=== PATIENT | male | born 1955 | race Caucasian/White ===

== ENCOUNTER → 2016-09-09 | Outpatient (CLI) | payer OTHER ==
[2016-09-09 17:04] LABS: HEMOGLOBIN 16.1 g/dL (14.1-18.0); LYMPH # 3.1 K/mm3 (0.7-4.5); LYMPH % 34.8 % (10-50)
[2016-09-09 20:42] LABS: BUN 5 mg/dL (7-18); PROSTATE-SPECIFIC AG SCREEEN 0.4 ng/mL (0.0-4.0)
[2016-09-09 21:04] LABS: GFR (ESTIMATED) 99 ML/MIN (>60)
== END ==
LOC: LAB 16:33
PROVIDERS: Nurse Practitioner Family
DX: I10 Essential (primary) hypertension (principal); F32.9 Major depressive disorder, single episode, unspecified; Z00.00 Encounter for general adult medical examination without abnormal findings
CPT/HCPCS: G0103

== ENCOUNTER → 2017-01-26 | Outpatient (CLI) | payer OTHER ==
[2017-01-26 18:41] LABS: AMPHETAMINES/METAMPHETAMINES NEGATIVE ng/mL (<1000)
[2017-02-02 09:39] LABS: Opiates Negative (Cutoff=100)
== END ==
LOC: LAB 15:46
PROVIDERS: Emergency Medicine
DX: Z79.899 Other long term (current) drug therapy (principal)

== ENCOUNTER → 2017-02-22 | Outpatient (CLI) | payer OTHER ==
[2017-02-22 13:45] LABS: AMPHETAMINES/METAMPHETAMINES NEGATIVE ng/mL (<1000)
== END ==
LOC: LAB 13:02
PROVIDERS: Emergency Medicine
DX: R30.0 Dysuria (principal); Z79.899 Other long term (current) drug therapy